=== PATIENT | male | born 1940 | race Hispanic/Latino ===

== ENCOUNTER 2020-03-05 15:51 | Emergency (ER) | payer MEDICARE ==
--- NOTE | 2020-03-05 17:15 | Emergency Department Report ---
ED Back Pain/Injury HPI - General Chief Complaint: Back Pain/Injury Stated Complaint: BACK PAIN Time Seen by Provider: 03/05/20 16:45 Source: patient Limitations: No Limitations - History of Present Illness Initial Comments: 79-year-old gentleman presents to the emergency room stating that 1 week ago he was moving a freezer with his at home. He fell backwards onto cement steps onto his lower back. At the time of this injury he denied any head or neck injury no loss of consciousness. He has been using ice and heating pads and taking Tylenol 2 tabs every 4 hours for pain. Patient states that the pain is still ongoing. he is pointing to the paraspinal area bilaterally. He denies any bowel or bladder incontinence and he is walking at his usual pace. He now has r ates as 0 pain scale. Patient states he wants to find out what is going on with his back and he is requesting x-rays MD Complaint: back pain -: week(s) (1) Similar Symptoms Previously: No Place: home Radiation: none Severity: mild Severity scale (0 -10): 0 Quality: aching Consistency: constant Improves With: none Context: fall Associated Symptoms: denies other symptoms Treatments Prior to Arrival: acetaminophen - Related Data Home Medications Medication Instructions Recorded Confirmed Last Taken Amitriptyline [Elavil] 10 mg PO QHS 06/09/17 06/09/17 Unknown Amlodipine Besylate [Norvasc] 10 mg PO DAILY 06/09/17 06/09/17 Unknown Atorvastatin Calcium [Lipitor] 10 mg PO DAILY 06/09/17 06/09/17 Unknown Levothyroxine [Synthroid] 75 mcg PO QAM 06/09/17 06/09/17 Unknown Previous Rx's Medication Instructions Recorded Last Taken Type Amoxicillin/K Clav Tab [Augmentin 1 tab PO Q12HR #20 tab 06/11/17 Unknown Rx 875 mg] HYDROcodone/APAP 5-325 [[place] 1 each PO Q6HR PRN #12 tablet 06/11/17 Unknown Rx 5/325] methOCARBAMOL [Robaxin TAB] 500 mg PO BID PRN #20 tab 03/05/20 Unknown Rx Allergies Allergy/AdvReac Type Severity Reaction Status Date / Time No Known Allergies Allergy Verified 06/08/17 23:07 ED Review of Systems ROS: Stated complaint: BACK PAIN Other details as noted in HPI Comment: All other systems reviewed and negative Constitutional: denies: chills, fever, weakness ENT: denies: ear pain, throat pain, dental pain, hearing loss Respiratory: denies: orthopnea Cardiovascular: denies: chest pain, palpitations, syncope, paroxysmal nocturnal dyspnea Endocrine: denies: excessive sweating, intolerance to cold, intolerance to heat Gastrointestinal: denies: abdominal pain, constipation, hematemesis Musculoskeletal: back pain. denies: joint swelling, arthralgia, myalgia Neurological: denies: headache, weakness, numbness, paresthesias, abnormal gait, vertigo Psychiatric: denies: anxiety, depression, auditory hallucinations, visual hallucinations, homicidal thoughts ED Past Medical Hx - Past Medical History Previous Medical History?: Yes Hx Hypertension: Yes Hx HIV: No Additional medical history: high cholesterol, hypothyroidism - Surgical History Additional Surgical History: stomach surgery - Social History Smoking Status: Never Smoker Substance Use Type: None - Medications Home Medications: Home Medications Medication Instructions Recorded Confirmed Last Taken Type Amitriptyline [Elavil] 10 mg PO QHS 06/09/17 06/09/17 Unknown History Amlodipine Besylate [Norvasc] 10 mg PO DAILY 06/09/17 06/09/17 Unknown History Atorvastatin Calcium [Lipitor] 10 mg PO DAILY 06/09/17 06/09/17 Unknown History Levothyroxine [Synthroid] 75 mcg PO QAM 06/09/17 06/09/17 Unknown History Amoxicillin/K Clav Tab [Augmentin 1 tab PO Q12HR #20 tab 06/11/17 Unknown Rx 875 mg] HYDROcodone/APAP 5-325 [[place] 1 each PO Q6HR PRN #12 tablet 06/11/17 Unknown Rx 5/325] methOCARBAMOL [Robaxin TAB] 500 mg PO BID PRN #20 tab 03/05/20 Unknown Rx ED Physical Exam - General Limitations: No Limitations General appearance: alert, in no apparent distress - Head Head exam: Present: atraumatic, normal inspection - Eye Eye exam: Present: normal appearance - ENT ENT exam: Present: normal exam, mucous membranes moist - Neck Neck exam: Present: normal inspection, full ROM. Absent: tenderness - Respiratory Respiratory exam: Present: normal lung sounds bilaterally. Absent: respiratory distress, wheezes, chest wall tenderness - Cardiovascular Cardiovascular Exam: Present: regular rate, normal heart sounds - GI/Abdominal GI/Abdominal exam: Present: soft, normal bowel sounds. Absent: distended, tenderness, guarding, rebound - Rectal Rectal exam: Absent: deferred - Extremities Exam Extremities exam: Present: normal inspection, normal capillary refill - Back Exam Back exam: Present: normal inspection, full ROM, paraspinal tenderness, other (No bruises or swelling noted). Absent: tenderness, vertebral tenderness - Neurological Exam Neurological exam: Present: alert, oriented X3 - Psychiatric Psychiatric exam: Present: normal affect - Skin Skin exam: Present: warm, dry, intact, normal color. Absent: rash, cyanosis, diaphoretic ED Course Vital Signs 03/05/20 03/05/20 16:21 17:24 Temperature 98.9 F 980.2 F H Pulse Rate 95 H 100 H Respiratory 18 16 Rate Blood Pressure 125/86 Blood Pressure 150/88 [Left] O2 Sat by Pulse 98 96 Oximetry - Reevaluation(s) Reevaluation #1: 03/05/20 17:07 observed patient ambulatory in the emergency room with steady gait. ED Medical Decision Making - Radiology Data Radiology results: report reviewed FINDINGS: VERTEBRAE: Vertebral bodies are osteopenic Mild vertebral compression along superior and inferior endplates of L1 since 2013 Progression of superior endplate compression of the L2 and mild compression along the inferior endplate of L2 since 2013 Mild compression along the superior endplate of L3 since 2013 L4 and L5 vertebral bodies remain unchanged DISC SPACES / FACET JOINTS:No significant abnormality. PARASPINAL SOFT TISSUES:No significant abnormality. ADDITIONAL FINDINGS: None. Since 2013, mild compression fractures are seen at L1, L2 at L3; age indeterminate - Differential Diagnosis back pain, vertebral fracture, contusion Critical Care Time: No Critical care attestation.: If time is entered above; I have spent that time in minutes in the direct care of this critically ill patient, excluding procedure time. ED Disposition Clinical Impression: Compression fracture Back pain Qualifiers: Back pain location: low back pain Chronicity: acute Back pain laterality: bilateral Sciatica presence: without sciatica Qualified Code(s): M54.5 - Low back pain Disposition: - TO HOME OR SELFCARE Is pt being admited?: No Does the pt Need Aspirin: No Condition: Stable Instructions: Chronic Back Pain, [id number], Spinal Compression Fracture, Back Injury Prevention Additional Instructions: FINDINGS: oc the xray of your back reveals Since 2013, mild compression fractures are seen at L1, L2 at L3; . Follow-up with your primary care doctor in 3 to 5 days or you may follow-up with Dr. Crain orthopedic doctor.. Continue with warm compress and Tylenol for pain. Prescriptions: methOCARBAMOL [Robaxin TAB] 500 mg PO BID PRN #20 tab PRN Reason: Spasms Referrals: HAYLEY VILLEDA MD [Staff Physician] - 3-5 Days MANISHA CRAIN MD [Staff Physician] - 3-5 Days NOE ROB MD [Staff Physician] - 3-5 Days Time of Disposition: 18:14
[2020-03-05 17:25] VITALS: BP 150/88
--- NOTE | 2020-03-05 17:39 | XRay Report ---
LUMBAR SPINE 3 VIEWS INDICATION / CLINICAL INFORMATION: back pain s/p fall. COMPARISON: Lumbosacral spine series from 11/25/2013 FINDINGS: VERTEBRAE: Vertebral bodies are osteopenic Mild vertebral compression along superior and inferior endplates of L1 since 2013 Progression of superior endplate compression of the L2 and mild compression along the inferior endpla te of L2 since 2013 Mild compression along the superior endplate of L3 since 2013 L4 and L5 vertebral bodies remain unchanged DISC SPACES / FACET JOINTS:No significant abnormality. PARASPINAL SOFT TISSUES:No significant abnormality. ADDITIONAL FINDINGS: None. Since 2013, mild compression fractures are seen at L1, L2 at L3; age indeterminate Signer Name: Beckie Hong MD Signed: 03/05/2020 5:34 PM Workstation Name: [id number]
== END 2020-03-05 18:59 | disposition home or self-care (01) ==
LOC: ED 15:51
DX: S32.009A Unspecified fracture of unspecified lumbar vertebra, initial encounter for closed fracture (principal); I10 Essential (primary) hypertension; Z79.899 Other long term (current) drug therapy
CPT/HCPCS: 72100; 99283